=== PATIENT | female | born 1945 | race Caucasian/White ===

== ENCOUNTER 2023-04-30 14:23 | Outpatient (OUT) | payer MEDICARE, OTHER, SELFPAY ==
--- NOTE | 2023-04-30 15:09 | CA_ITS ---
Patient: KAT CORNELIUS Exam Date: 04/30/2023 : 1945 Gender:F Ordering : DR Yee Leroy M.D. Admission #: [id number] Family : Order #: [id number] CLICK HERE TO VIEW EXAM ECHOCARDIOGRAM REPORT PROCEDURE: CA ECHO DOPPLER COMPLETE INDICATIONS: MURMUR COMPARISON: None. DESCRIPTION: COMPLETE ECHOCARDIOGRAM Real-time transthoracic echocardiography with 2D, M-mode, spectral and color flow Doppler performed. QUALITY: Technical quality was good. LEFT VENTRICLE: Normal chamber size. Normal left ventricular wall thickness. LV EF: Global left ventricular systolic function is hyperdynamic; visual estimation of left ventricular ejection fraction is 65-70% DIASTOLIC: Diastolic function is indeterminate. ATRIAL SEPTUM: Inadequately seen. LEFT ATRIUM: Mild dilatation. RIGHT ATRIUM: Mild dilatation. RIGHT VENTRICLE: Mild dilatation. Normal right ventricular systolic function. TRICUSPID VALVE: Normal mobility and thickness. No stenosis with trivial regurgitation. No evidence of pulmonary hypertension. RVSP 25mmHg MITRAL VALVE: Normal mobility and thickness. No evidence of mitral valve stenosis. There is no mitral annular calcification. Trivial mitral regurgitation. AORTIC VALVE: Normal trileaflet appearance. Mildly calcified aortic valve. Normal Doppler velocity suggests mild to moderate aortic valve stenosis. DVI 0.3, JAYCEE 1.4cm2, Vmax 2.6m/s, Mean gradient 16mmHg. No aortic regurgitation. AORTIC ROOT: Normal diameter and appearance. PULMONIC VALVE: Normal thickness and mobility. No stenosis. Mild regurgitation. PERICARDIUM: No evidence of pericardial effusion. IVC: Collapses with inspirations. Normal size. CONCLUSION: 1. Global left ventricular systolic function is hyperdynamic; visually estimated ejection fraction 65 to 70% 2. The right ventricle is mildly dilated with normal systolic function 3. Biatrial enlargement 4. Diastolic function is indeterminate 5. Mild to moderate aortic valve stenosis 6. Mild pulmonic regurgitation Adult Echocardiography Procedure Report Left Ventricle LVEDD (3.7 - 5.6 cm): 4.88 cm LVESD (2.2 - 4.0 cm): 2.96 cm LVIVS thickness (0.6 - 1.2 cm): 1.10 cm LVPW thickness (0.5 - 1.0 cm): 0.87 cm e': 0.09 m/s E - e': 5.76 LVOT Max Gradient: 5.40 mm[Hg] LVOT Area (cm2): 1.16 m/s Peak Velocity (LVOT): 1.16 m/s Mean Velocity (LVOT): 0.85 m/s LVOT Diameter 2.04 cm Left Ventricular Ejection Fraction: 71.28 % Left Atrium LA Volume Index (2D A2C): 42.26 ml/m2 Left Atrium Systolic Dimension: 4.15 cm Mitral Valve MV E to A Ratio: 0.88 Mitral Valve A-Wave Peak Velocity: 0.61 m/s Mitral Valve E-Wave Peak Velocity: 0.53 m/s Right Ventricle RV Internal Diastolic Dimension: 4.38 cm Aorta AO Root Diam: 3.07 cm Ascending Ao Diam: 3.10 cm Aortic Valve AoV Area (Peak Emre): 1.52 cm2, 1.45 cm2 AoV Area (VTI): 1.71 cm2, 1.66 cm2 Peak Velocity(Antegrade Flow): 2.61 m/s, 2.38 m/s Peak Gradient(Antegrade Flow): 27.29 mm[Hg], 22.63 mm[Hg] Mean Velocity(Antegrade Flow): 1.91 m/s, 1.51 m/s Mean Gradient(Antegrade Flow): 16.47 mm[Hg], 11.27 mm[Hg] Velocity Time Integral: 57.08 cm, 53.95 cm Tricuspid Valve Peak Velocity (Regurgitant Flow): 1.83 m/s, 2.15 m/s, 2.33 m/s Pulmonic Valve Peak Velocity: 0.88 m/s Peak Gradient: 2.61 mm[Hg], 3.68 mm[Hg] Right Atrium Right Atrium Systolic Pressure: 58.56 ml, 58.56 ml Dictated by: Criselda Ward M.D. on 05/01/2023 at 15:05 Approved by: Criselda Ward M.D. on 05/01/2023 at 15:11
== END 2023-04-30 14:24 | disposition home or self-care (01) ==
LOC: CARD 14:23
PROVIDERS: PCP Family Medicine; Visit Provider Family Medicine
DX: R01.1 Cardiac murmur, unspecified (principal)
CPT/HCPCS: 93306

== ENCOUNTER 2025-03-03 10:55 | Outpatient (OUT) | payer MEDICARE, OTHER, SELFPAY ==
[2025-03-03 11:46] LABS: Alanine Aminotransferase 22 U/L (14-59); Albumin Globulin Ratio 0.8; Albumin Level 3.6 g/dL (3.4-5.0); Alkaline Phosphatase 99 U/L (46-116); Anion Gap 11.0; Aspartate Amino Transferase 18 U/L (15-37); Blood Urea Nitrogen 22.0 mg/dL (7.0-18.0); Calcium 9.2 mg/dL (8.5-10.1); Carbon Dioxide 28.6 mmol/L (21.0-32.0); Chloride 101 mmol/L (98-107); Estimated GFR (African America >60 (>=60 mL/min/1.73m^2); Estimated GFR (Non-African Ame >60 (>=60 mL/min/1.73m^2); Globulin 4.5 g/dL; Glucose 103 mg/dL (74-106); Potassium 4.6 mmol/L (3.5-5.1); Sodium 136 mmol/L (136-145); Total Protein 8.1 g/dL (6.4-8.2)
[2025-03-03 13:40] LABS: Hematocrit 38.2 % (36.0-48.0); Hemoglobin 12.4 g/dL (12.0-16.0); Immature Granulocytes Abs Auto 0.01 10^3/uL (0.00-0.03); Immature Granulocytes Pct Auto 0.2 % (0.0-0.5); Lymphocytes Absolute Auto 1.7 10^3/uL (1.2-3.8); Mean Corpuscular HGB Conc 32.5 g/dL (29.9-35.2); Mean Corpuscular Hemoglobin 31.2 pg (26.7-34.0); Mean Corpuscular Volume 96.2 fL (81.0-99.0); Platelet Count 365 10^3/uL (150-450); Red Blood Count 3.97 10^6/uL (4.20-5.40); White Blood Count 6.4 10^3/uL (4.0-11.0)
== END 2025-03-03 10:56 | disposition home or self-care (01) ==
LOC: LAB 11:01
PROVIDERS: PCP Family Medicine; Visit Provider Family Medicine
DX: I10 Essential (primary) hypertension (principal); W57.XXXA Bitten or stung by nonvenomous insect and other nonvenomous arthropods, initial encounter
CPT/HCPCS: 36415; 80053; 85025; 86618